=== PATIENT | male | born 1950 | race Caucasian/White ===

== ENCOUNTER 2024-01-19 10:36 | Outpatient (AMB) | payer BC, MEDICARE, SELFPAY ==
[2024-01-19 10:52] VITALS: BP 130/90; PULSE 70; O2SAT 95; BMI 46.8
--- NOTE | 2024-01-19 10:52 | HO.NEPHOV ---
Vital Signs 01/19/24 10:52 Height 6 ft Weight 345 lb BMI 46.8 BP 130/90 H Blood Pressure Location Lt brachial Position Sitting Pulse 70 Pulse Source Pulse Oximeter Pulse Oximetry (%) 95 Oxygen Delivery Method Room Air Intake Visit Reasons: 6M follow up/ Confirmed Operations Specialists Required: No Accompanied by: Self / Same As Patient Allergies No Known Allergies Allergy (Verified 01/19/24 10:54) HPI Comments Details: I would the privilege of seeing Alban in follow-up of his hypertension. He has a lot of personal family stressors. He has been trying hard to lose weight with mediocre success. He has been having knee joint pain and has been getting cortisone shots. He has history of atrial fibrillation. He has obstructive sleep apnea and uses CPAP. He has no history of coronary artery disease, congestive heart failure, CVA, JOSÉ or PAD. 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 He tries to minimize sodium in the diet. His renal functions are normal. He denies taking excessive nonsteroidal anti-inflammatory medications. [facility] Medical History (Updated 01/19/24 @ 21:21 by Aaron Ocampo MD) Diverticulitis Hyperlipidemia Obstructive sleep apnea Neoplasm of brain Hypertension Surgical History History of brain surgery Family History Mother Heart disease Hypertension Father Heart disease Hypertension Social History Alcohol intake: current Comment: Rare/Social Patient Tobacco Use Status: Never used Tobacco Physical Exam Vital Signs: Last Vital Signs Pulse 70 01/19/24 10:52 BP 130/90 H 01/19/24 10:52 Pulse Ox 95 01/19/24 10:52 Oxygen Delivery Method Room Air 01/19/24 10:52 BMI result Body Mass Index 46.8 Const General: comfortable and no acute distress Orientation/consciousness: patient oriented x3 HEENT Head: Yes normocephalic Mouth: Normal oral and palatal mucosa present Eyes EOM: EOMs intact bilaterally Neck Neck: Yes supple Resp Auscultation: clear to auscultation bilaterally Cardio Jugular venous distension: no JVD Rate: regular rate GI Palpation (GI): Soft to palpation Auscultation: normal bowel sounds General: Yes no CVA tenderness Back/Spine/Pelvis Back: no CVA tenderness Skin General skin exam: no rashes or lesions noted Neuro General: patient oriented x3 and moves all extremities Extrem General: Yes no pedal edema Results Reviewed Nephrology Results: No Data to Display Assessment & Plan Assessment & Plan (1) Hypertension: Code(s): I10 - Essential (primary) hypertension Category: Medical Qualifiers: Hypertension type: primary hypertension Qualified Code(s): I10 - Essential (primary) hypertension Plan Jasbir is known to have hypertension for long time. He has high BMI. He is trying to lose weight. I encouraged him to consider gastric sleeve surgery. He has obstructive sleep apnea and uses CPAP. He has no objective evidence of end-organ damage from hypertension. He has history of atrial fibrillation with good heart rate control now. He tries to maintain low-sodium diet. He was encouraged to keep up with lifestyle modification. He is on benazepril 40 mg daily as well as carvedilol 25 mg b.i.d. I shall consider adding low-dose calcium channel ash if his blood pressure remains labile. He should minimize nonsteroidal anti-inflammatories. He was encouraged to keep up with good hydration. Follow-up lab work ordered. Answered all questions. Follow-up appointment given. Orders: Orders Blood Urea Nitrogen Today I10 - Essential (primary) hypertension Electrolytes Today I10 - Essential (primary) hypertension Creatinine Today I10 - Essential (primary) hypertension Coding Level of Care Code Est Pt Level 4 (97312) Diagnoses Primary hypertension I10 Hypertension type: primary hypertension
== END 2024-01-19 11:23 | disposition home or self-care (01) ==
PROVIDERS: PCP Family Medicine; Visit Provider Internal Medicine Nephrology
DX: I10 Essential (primary) hypertension (principal)
CPT/HCPCS: 99214

== ENCOUNTER → 2024-01-19 10:36 | Outpatient (BNVA) | payer BC, SELFPAY | PROVIDERS: PCP Family Medicine; Visit Provider Internal Medicine Nephrology ==